=== PATIENT | female | born 1950 | race Caucasian/White ===

== ENCOUNTER 2017-07-28 08:50 | Emergency (ER) | payer OTHER ==
[~2017-07-28] VITALS: Ht 170.2 cm; Wt 78.5 kg
[2017-07-28 11:25] LABS: HEMATOCRIT 35.8 % (36.0-46.0); HEMOGLOBIN 11.7 G/DL (11.9-15.5); MCHC 32.7 G/DL (30.0-36.0); MCV 91.8 FL (83-99); PLATELET COUNT 537 K/uL (156-360); RBC DIS.WIDTH-SD 43.3 % (39-53); WHITE BLOOD COUNT 12.2 K/uL (4.1-10.2)
[2017-07-28 11:37] LABS: ALBUMIN 3.9 g/dL (3.2-4.8); CHLORIDE 99 mEq/L (99-109); POTASSIUM 3.2 mEq/L (3.7-5.4); SODIUM 135 mEq/L (136-147)
[2017-07-28 11:40] LABS: GLUCOSE 145 mg/dL (70-99); TOTAL PROTEIN 7.3 g/dL (6.4-8.3)
[2017-07-28 11:42] LABS: TOTAL BILIRUBIN 0.5 mg/dL (0.0-1.0)
[2017-07-28 11:43] LABS: ALKALINE PHOSPHATASE 225 IU/L (3-129); CREATININE 0.8 mg/dL (0.6-1.3)
[2017-07-28 11:44] LABS: GFR ESTIMATE (CALCULATED) > 59 mL/min/; UREA NITROGEN (BUN) 10 mg/dL (9-23)
[2017-07-28 11:45] LABS: AST (GOT) 23 IU/L (2-34)
[2017-07-28 11:46] LABS: ALT (GPT) 39 IU/L (3-49)
[2017-07-28 11:47] LABS: LIPASE 10 U/L (1.0-51.0)
[2017-07-28] MEDS ORDERED: IMITREX50 MG PO (12:09)
[2017-07-28 12:24] VITALS: BP 127/67
== END 2017-07-28 12:26 | disposition home or self-care (01) ==
LOC: EME 08:50
PROVIDERS: Physician Assistant
DX: J18.9 Pneumonia, unspecified organism (principal); Z86.69 Personal history of other diseases of the nervous system and sense organs
CPT/HCPCS: 71046; 80053; 81003; 83690; 85027; 87502; J0696